=== PATIENT | male | born 1995 | race Caucasian/White ===

== ENCOUNTER 2021-01-26 19:05 | Emergency (ER) | payer BC ==
[2021-01-26 19:16] VITALS: BP 108/69; PULSE 92; TEMP 98; BMI 23.7
[2021-01-26] MEDS ORDERED: KETOROLAC TROMETHAMINE 30 MG/1 ML VIAL IM ONE (20:15)
[2021-01-26] MEDS ORDERED: KETOROLAC TROMETHAMINE 30 MG/1 ML VIAL ONE (20:18)
== END 2021-01-26 22:18 | disposition home or self-care (01) ==
LOC: JER 19:05 → JERFT 19:05 → JER 22:18
PROC: 3E0233Z Introduction of Anti-inflammatory into Muscle, Percutaneous Approach (ICD-10-PCS; principal; 2021-01-26)
DX: S42.022A Displaced fracture of shaft of left clavicle, initial encounter for closed fracture (principal); S00.93XA Contusion of unspecified part of head, initial encounter
CPT/HCPCS: 70450-TC; 70486-TC; 72125-TC; 73000-TC-LT-FY; 73030-TC-LT-FY; 93005; 93010; 99285-25

== ENCOUNTER 2022-12-21 10:51 | Emergency (ER) | payer SELFPAY ==
[2022-12-21 10:55] VITALS: BP 132/64; PULSE 70; RESP 18; TEMP 98.3; BMI 23.0
[2022-12-21] MEDS ORDERED: LIDOCAINE HCL 1%, 10 MG/ML (50 mL VIAL) SNB ONE (11:43)
[2022-12-21] MEDS ORDERED: LIDOCAINE HCL 1%, 10 MG/ML (10ML VIAL) MDV ONE (11:43)
== END 2022-12-21 12:40 | disposition home or self-care (01) ==
LOC: JERFT 10:51
PROC: 0HQGXZZ Repair Left Hand Skin, External Approach (ICD-10-PCS; principal; 2022-12-21)
DX: S61.512A Laceration without foreign body of left wrist, initial encounter (principal); W25.XXXA Contact with sharp glass, initial encounter
CPT/HCPCS: 73090-TC-LT-FY; 99283-25